=== PATIENT | male | born 1995 | race Asian ===

== ENCOUNTER 2017-01-21 13:22 | Emergency (ER) | payer MEDICAID ==
[~2017-01-21] VITALS: Ht 185.4 cm; Wt 90.7 kg
[2017-01-21 17:22] VITALS: BP 128/64
== END 2017-01-21 17:22 | disposition home or self-care (01) ==
LOC: ED 13:22
DX: M54.42 Lumbago with sciatica, left side (principal)
CPT/HCPCS: J1170; J1885; Q0162